=== PATIENT | female | born 1955 | race African-American/Black ===

== ENCOUNTER 2022-06-24 18:38 | Emergency (ER) | payer MEDICARE, OTHER ==
[~2022-06-24] VITALS: Ht 152.4 cm; Wt 77.1 kg
--- NOTE | 2022-06-24 19:15 | NUR ---
Report recieved from [facility].
[2022-06-24] MEDS ORDERED: KETOROLAC TROMETHAMINE 30 MG INJ IVP ONE (19:45)
[2022-06-24] MEDS ORDERED: HYDROMORPHONE 1 MG/1 ML DISP.SYRIN IV ONE (19:45)
[2022-06-24 19:57] LABS: HEMATOCRIT 37.5 % (31.2-41.9); MEAN CORPUSCULAR HEMOGLOBIN 27.9 uug (24.7-32.8); MEAN CORPUSCULAR VOLUME 85.8 fL (75.5-95.3); PLATELET COUNT (AUTO) 266 K/uL (179-408)
[2022-06-24] MEDS ORDERED: KETOROLAC TROMETHAMINE 30 MG INJ ONE (19:57)
[2022-06-24] MEDS ORDERED: HYDROMORPHONE 1 MG/1 ML DISP.SYRIN ONE (19:57)
[2022-06-24 20:00] LABS: CARBON DIOXIDE 25 mmol/L (21-32); CHLORIDE 104 mmol/L (98-107); CREATININE 0.9 mg/dL (0.6-1.3); GLUCOSE 93 mg/dL (74-106); POTASSIUM 4.2 mmol/L (3.5-5.1); UREA NITROGEN, BLOOD 22 mg/dL (7-18)
[2022-06-24] MEDS ORDERED: IOHEXOL 300MG/ML 100 ML INFUS..BTL ONE (20:22)
[2022-06-24] MEDS ORDERED: SWABABLE VALVE TRANSFER SET EA MC ONE (20:22)
[2022-06-24] MEDS ORDERED: IV NORMAL SALINE 250 ML IV ONE (20:22)
--- NOTE | 2022-06-24 20:35 | NUR ---
Pt went down for CT
--- NOTE | 2022-06-24 20:42 | NUR ---
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
--- NOTE | 2022-06-24 21:39 | NUR ---
Placed NC on 2L per doctors orders -Kelsey (student nurse)
[2022-06-24] MEDS ORDERED: CYCL5TAB PO (23:49)
[2022-06-24] MEDS ORDERED: NAPR500T6 PO (23:49)
[2022-06-25] MEDS ORDERED: IBUPROFEN 600 MG TABLET ONE (02:30)
[2022-06-25] MEDS ORDERED: IBUPROFEN 600 MG TABLET PO ONE (02:30)
--- NOTE | 2022-06-25 02:30 | NUR ---
Patient discharged to home in stable condition with daughter. A/O x4. NAD noted. Written and verbal after care instructions given. Patient verbalizes understanding of instructions. Stressed follow up or return to ER for worsening s/s.
[2022-06-25 02:45] VITALS: BP 135/80
== END 2022-06-25 02:30 | disposition home or self-care (01) ==
LOC: ER 18:38
DX: S29.9XXA Unspecified injury of thorax, initial encounter (principal); S09.90XA Unspecified injury of head, initial encounter; W05.0XXA Fall from non-moving wheelchair, initial encounter; Y92.811 Bus as the place of occurrence of the external cause; V69.88XA Occupant (driver) (passenger) of heavy transport vehicle injured in other specified transport accidents, initial encounter; Y92.410 Unspecified street and highway as the place of occurrence of the external cause; J45.909 Unspecified asthma, uncomplicated; K42.9 Umbilical hernia without obstruction or gangrene
CPT/HCPCS: 99285; 70450; 96374; 96375; 80048; 85025; 84484; 36415; 93005; 71260; 74177; J1885; Q9967; J1170; A4663